=== PATIENT | female | born 1975 | race Caucasian/White ===

== ENCOUNTER 2017-04-16 12:56 | Emergency (ER) | payer OTHER ==
[2017-04-16 12:58] VITALS: BP 202/103; PULSE 112; RESP 16; TEMP 97.6; O2SAT 97
[2017-04-16 13:13] VITALS: BP 226/130; PULSE 104; RESP 18; O2SAT 97
[2017-04-16] MEDS ORDERED: SUMA100T2 PO (13:16)
[2017-04-16 13:18] VITALS: PULSE 116; RESP 18; O2SAT 97
--- NOTE | 2017-04-16 13:19 | PD ---
HPI Chief Complaint: Chest Pain Time Seen by Provider: 13:12 Travel History International Travel<30 days: No Contact w/Intl Traveler<30days: No Traveled to known affect area: No History of Present Illness HPI 41-year-old female with history of migraines, presents to the emergency Department with shortness of breath, chest tightness, and anxiety status post taking her first dose of sumatriptan 50 mg by mouth at 11:30 this morning. Symptoms started at approximately 12 noon and worsened. Patient has no previous history of hypertension or cardiac history in the past. Patient states her headache is improved but her symptoms of shortness of breath and chest tightness and anxiety have worsened. Patient has complaints of nausea but no vomiting. She denies any other symptoms currently. Patient has no known drug allergies. PFSH Past Medical History Migraines: Yes ?: Unknown Past Surgical History Cholecystectomy: Yes Social History Alcohol Use: Yes Tobacco Use: No Substance Use: Yes Allergies-Medications (Allergen,Severity, Reaction): Coded Allergies: No Known Allergies (Unverified , 04/16/17) Reported Meds & Prescriptions Reported Meds & Active Scripts Active Reported Sumatriptan (Sumatriptan Succinate) 100 Mg Tab 100 Mg PO ONCE PRN If a satisfactory response has not been obtained at 2 hours, a second dose may be administered Review of Systems Except as stated in HPI: all other systems reviewed are Neg General / Constitutional: No: Fever Eyes: No: Diploplia, Blurred Vision, Photophobia, Blind Spots, Visual changes, Blindness HENT: Positive: Headaches, No: Vertigo (improved now.), Lightheadedness Cardiovascular: Positive: Chest Pain or Discomfort (see history present illness ), Tachycardia, No: Palpitations, Irregular Rhythm, Diaphoresis, Syncope, Dyspnea on exertion, Varicosities, Edema, Cyanosis, Varicosities, Phlebitis, Claudication Respiratory: Positive: Shortness of Breath, No: Cough, Wheezing, Sneezing Gastrointestinal: Positive: Nausea, No: Vomiting, Diarrhea, Abdominal Pain Genitourinary: No: Dysuria Musculoskeletal: No: Pain Skin: No Rash Neurologic: No: Weakness Psychiatric: No: Depression Endocrine: No: Polydipsia Hematologic/Lymphatic: No: Easy Bruising Physical Exam Narrative GENERAL: Patient is very anxious and tachypneic. SKIN: Warm and dry. Normal color. Normal turgor. No diaphoresis. HEAD: Atraumatic. Normocephalic. EYES: Pupils equal and round. No scleral icterus. No injection or drainage. ENT: No nasal bleeding or discharge. Mucous membranes pink and moist. Pharynx is clear. Airway is patent. Tongue is normal. NECK: Trachea midline. Supple and nontender. CARDIOVASCULAR: Tachycardic rate and normal rhythm. RESPIRATORY: No accessory muscle use. Clear to auscultation. Breath sounds equal bilaterally. GASTROINTESTINAL: Abdomen soft, non-tender, nondistended. Hepatic and splenic margins not palpable. MUSCULOSKELETAL: Extremities without clubbing, cyanosis, or edema. No obvious deformities. NEUROLOGICAL: Awake and alert. No obvious cranial nerve deficits. Motor grossly within normal limits. Five out of 5 muscle strength in the arms and legs. Normal speech. PSYCHIATRIC: Appropriate mood and affect; insight and judgment normal. Data Data Last Documented VS Vital Signs Date Time Temp Pulse Resp B/P (MAP) Pulse Ox O2 Delivery O2 Flow Rate FiO2 04/16/17 13:18 116 18 97 Room Air 04/16/17 12:58 97.6 Orders Orders Electrocardiogram (04/16/17 13:16) Ckmb (Isoenzyme) Profile (04/16/17 13:16) Complete Blood Count With Diff (04/16/17 13:16) Comprehensive Metabolic Panel (04/16/17 13:16) Magnesium (Mg) (04/16/17 13:16) Prothrombin Time / Inr (Pt) (04/16/17 13:16) Act Partial Throm Time (Ptt) (04/16/17 13:16) Troponin I (04/16/17 13:16) Chest, Single Ap (04/16/17 13:16) Ecg Monitoring (04/16/17 13:16) Bilateral Bp Monitoring (04/16/17 13:16) Iv Access Insert/Monitor (04/16/17 13:16) Oximetry (04/16/17 13:16) Oxygen Administration (04/16/17 13:16) Aspirin Chew (Aspirin Chew) (04/16/17 13:30) Sodium Chloride 0.9% Flush (Ns Flush) (04/16/17 13:30) Sodium Chlorid 0.9% 500 Ml Inj (Ns 500 M (04/16/17 13:30) Lorazepam Inj (Ativan Inj) (04/16/17 13:30) Ondansetron Inj (Zofran Inj) (04/16/17 13:30) CKMB (04/16/17 13:20) CKMB% (04/16/17 13:20) Ketorolac Inj (Toradol Inj) (04/16/17 15:15) Labs Laboratory Tests Test 04/16/17 13:20 White Blood Count 11.5 TH/MM3 Red Blood Count 4.75 MIL/MM3 Hemoglobin 12.0 GM/DL Hematocrit 37.2 % Mean Corpuscular Volume 78.3 FL Mean Corpuscular Hemoglobin 25.3 PG Mean Corpuscular Hemoglobin Concent 32.3 % Red Cell Distribution Width 16.6 % Platelet Count 357 TH/MM3 Mean Platelet Volume 7.2 FL Neutrophils (%) (Auto) 67.2 % Lymphocytes (%) (Auto) 26.3 % Monocytes (%) (Auto) 4.8 % Eosinophils (%) (Auto) 1.5 % Basophils (%) (Auto) 0.2 % Neutrophils # (Auto) 7.7 TH/MM3 Lymphocytes # (Auto) 3.0 TH/MM3 Monocytes # (Auto) 0.6 TH/MM3 Eosinophils # (Auto) 0.2 TH/MM3 Basophils # (Auto) 0.0 TH/MM3 CBC Comment DIFF FINAL Differential Comment Prothrombin Time 10.2 SEC Prothromb Time International Ratio 1.0 RATIO Activated Partial Thromboplast Time 28.9 SEC Blood Urea Nitrogen 8 MG/DL Creatinine 0.56 MG/DL Random Glucose 90 MG/DL Total Protein 8.1 GM/DL Albumin 3.6 GM/DL Calcium Level 8.9 MG/DL Magnesium Level 2.1 MG/DL Alkaline Phosphatase 146 U/L Aspartate Amino Transf (AST/SGOT) 20 U/L Alanine Aminotransferase (ALT/SGPT) 29 U/L Total Bilirubin 0.2 MG/DL Sodium Level 141 MEQ/L Potassium Level 3.5 MEQ/L Chloride Level 105 MEQ/L Carbon Dioxide Level 29.0 MEQ/L Anion Gap 7 MEQ/L Estimat Glomerular Filtration Rate 119 ML/MIN Total Creatine Kinase 205 U/L Creatine Kinase MB 1.5 NG/ML Creatine Kinase MB % 0.7 % Troponin I LESS THAN 0.02 NG/ML MDM Medical Decision Making Medical Screen Exam Complete: Yes Emergency Medical Condition: Yes Differential Diagnosis Chest pain. Tachycardic. Hypertensive. Medication reaction. Narrative Course Patient appears anxious but otherwise medically stable. EKG shows sinus tachycardia with a rate of 104. No significant ST changes. This is reviewed with Dr. Puckett. Cardiac protocol Labs ordered. Chest x-ray ordered. Labs are unremarkable. Chest x-ray is unremarkable. Troponin is less than 0.02. Patient is reevaluated at 1500 hrs. and felt much improved. It is felt the patient had reaction to sumatriptan by mouth. Patient is given Toradol 30 mg IV for for over 10 residual headache. Patient is felt stable for discharge home. Patient take sumatriptan again. Patient should follow-up with her headache specialist as discussed. Patient can return if symptoms recur. Diagnosis Primary Impression: Medication reaction Qualified Codes: T88.7XXA - Unspecified adverse effect of drug or medicament, initial encounter Referrals: Neurologist Patient Instructions: Adverse Drug Reaction (ED), General Instructions Additional Instructions: It is felt the patient had reaction to sumatriptan by mouth. Patient is given Toradol 30 mg IV for for over 10 residual headache. Patient is felt stable for discharge home. Patient take sumatriptan again. Patient should follow-up with her headache specialist as discussed. Patient can return if symptoms recur. Med/Other Pt SpecificInfo: Med Stopped Disposition: DISCHARGE HOME Condition: Stable Miguelangel Kate Apr 16, 2017 13:19
[2017-04-16] MEDS ORDERED: SODIUM CHLORIDE 0.9% FLUSH 10 ML FLUSH IVF PRN (13:30)
[2017-04-16] MEDS ORDERED: ONDANSETRON HCL 4 MG/2 ML VIAL IV PUSH ONE (13:30)
[2017-04-16] MEDS ORDERED: SODIUM CHLORID 0.9% 500 ML INJ 500 ML IV ONE (13:30)
[2017-04-16] MEDS ORDERED: ASPIRIN 81 MG CHEW TAB PO ONE (13:30)
[2017-04-16] MEDS ORDERED: LORazepam 2 MG/ML VIAL IV PUSH ONE (13:30)
--- NOTE | 2017-04-16 14:10 | RADRPT ---
EXAM DATE/TIME: 04/16/2017 13:41 [facility] COMPARISON: No previous studies available for comparison. INDICATIONS : Chest pain. MEDICAL HISTORY : high blood pressure, migraines SURGICAL HISTORY : None. ENCOUNTER: Initial ACUITY: 1 day PAIN SCORE: 8/10 LOCATION: Bilateral chest FINDINGS: A single view of the chest demonstrates the lungs to be symmetrically aerated without evidence of mas s, infiltrate or effusion. The cardiomediastinal contours are unremarkable. Osseous structures are intact. CONCLUSION: No acute cardiopulmonary process. Johnathan Ayon MD on April 16, 2017 at 14:07 Board Certified Radiologist. This report was verified electronically.
[2017-04-16 14:17] LABS: AUTOMATED NEUTROPHIL # 7.7 TH/MM3 (1.8-7.7); BASOPHIL % 0.2 % (0.0-2.0); EOSINOPHIL # 0.2 TH/MM3 (0-0.4); EOSINOPHIL % 1.5 % (0.0-4.0); HEMATOCRIT 37.2 % (35.0-46.0); LYMPH % 26.3 % (9.0-44.0); MEAN CELL VOLUME 78.3 FL (80.0-100.0); MEAN CORPUSCULAR HEMOGLOBIN 25.3 PG (27.0-34.0); MEAN CORPUSCULAR HGB CONC 32.3 % (32.0-36.0); MEAN PLATELET VOLUME 7.2 FL (7.0-11.0); MONO % 4.8 % (0.0-8.0); MONOCYTE # 0.6 TH/MM3 (0-0.9); NEUT % 67.2 % (16.0-70.0); PLATELET COUNT 357 TH/MM3 (150-450); RED BLOOD COUNT 4.75 MIL/MM3 (4.00-5.30); RED CELL DISTRIBUTION WIDTH 16.6 % (11.6-17.2); WHITE BLOOD COUNT 11.5 TH/MM3 (4.0-11.0)
[2017-04-16 14:28] LABS: PROTHROMBIN TIME - PATIENT 10.2 SEC (9.8-11.6)
[2017-04-16 14:35] LABS: ALBUMIN 3.6 GM/DL (3.4-5.0); ALT (GPT) 29 U/L (10-53); AST (GOT) 20 U/L (15-37); BLOOD UREA NITROGEN 8 MG/DL (7-18); CALCIUM 8.9 MG/DL (8.5-10.1); CHLORIDE 105 MEQ/L (98-107); CREATININE 0.56 MG/DL (0.50-1.00); GLOMERULAR FILTRATION RATE 119 ML/MIN (>89); GLUCOSE,RANDOM 90 MG/DL (74-106); MAGNESIUM 2.1 MG/DL (1.5-2.5); SODIUM (NA) 141 MEQ/L (136-145)
[2017-04-16 14:39] LABS: ALKALINE PHOSPHATASE 146 U/L (45-117); TOTAL BILIRUBIN ADULT 0.2 MG/DL (0.2-1.0); TOTAL PROTEIN 8.1 GM/DL (6.4-8.2); TROPONIN I LESS THAN 0.02 NG/ML (0.02-0.05)
[2017-04-16 15:08] VITALS: BP 162/75
[2017-04-16] MEDS ORDERED: KETOROLAC TROMETHAMINE 30 MG/ML (IVP) VIAL IV PUSH ONE (15:15)
--- NOTE | 2017-04-17 15:58 | EKG ---
Date Performed: 04/16/2017 Time Performed: 13:15:03 PTAGE: 41 years EKG: SINUS TACHYCARDIA INCOMPLETE RIGHT BUNDLE BRANCH BLOCK ABNORMAL RHYTHM ECG INTERPRETATION B ASED ON A DEFAULT AGE OF 40 YEARS NO PREVIOUS TRACING DOCTOR: Thomas Vicente Interpretating Date/Time 04/17/2017 15:56:38
== END 2017-04-16 15:30 | disposition home or self-care (01) ==
LOC: NEPC 12:56
DX: T39.8X1A Poisoning by other nonopioid analgesics and antipyretics, not elsewhere classified, accidental (unintentional), initial encounter (principal); R06.02 Shortness of breath; R07.89 Other chest pain; F41.9 Anxiety disorder, unspecified; R51 Headache; R11.0 Nausea; R00.0 Tachycardia, unspecified; I45.10 Unspecified right bundle-branch block; R94.31 Abnormal electrocardiogram [ECG] [EKG]
CPT/HCPCS: 71010; 80053; 82550; 82552; 83735; 84484; 85025; 85610; 85730; 93005; 96361; 96374; 96375; 99285; J1885; J2060; J2405; J7040